=== PATIENT | female | born 1985 ===

== ENCOUNTER 2017-09-30 01:16 | Emergency (ER) | payer OTHER ==
[2017-09-30 01:17] VITALS: BMI 18.1
[2017-09-30 01:52] VITALS: RESP 16; O2SAT 99
--- NOTE | 2017-09-30 02:17 | ED PDOC ---
Lower Extremity Pain/Injury Time Seen by Provider: 09/30/17 01:20 Chief Complaint (Nursing): Lower Extremity Problem/Injury Chief Complaint (Provider): Lower Extremity Problem/Injury History Per: Patient History/Exam Limitations: no limitations Onset/Duration Of Symptoms: Days (x2) Additional Complaint(s): Windy Gomez is a 31 year old female with a past medical history of hypothyroidism during her , depression, and varicose veins who is presenting to the ED for evaluation of bilateral leg swelling, onset 2 days ago. Patient states that swelling has subsided but pain has remained, worse in right calf compared to left. Of note, patient just gave via on . She denies any chest pain or shortness of breath. PMD: none provided Past Medical History Reviewed: Historical Data, Nursing Documentation, Vital Signs Vital Signs: Last Vital Signs Temp 98.2 F 09/30/17 01:48 Pulse 70 09/30/17 01:48 Resp 16 09/30/17 01:48 BP 124/83 09/30/17 01:48 Pulse Ox 99 09/30/17 01:48 - Medical History PMH: Asthma, Depression Denies: Diabetes, HTN, Chronic Kidney Disease Other PMH: varicose veins, hypothyroidism - Surgical History Surgical History: - Family History Family History: States: Stroke Other Family History: blood clots - Social History Current smoker - smoking cessation education provided: No Alcohol: None Drugs: Denies - Allergies Allergies/Adverse Reactions: Allergies Allergy/AdvReac Type Severity Reaction Status Date / Time pollen extracts Allergy Mild SHORTNESS Verified 06/10/17 11:18 OF BREATH Review of Systems ROS Statement: Except As Marked, All Systems Reviewed And Found Negative Cardiovascular: Negative for: Chest Pain Respiratory: Negative for: Shortness of Breath Musculoskeletal: Positive for: Leg Pain, Other (leg swelling) Physical Exam - Reviewed Nursing Documentation Reviewed: Yes Vital Signs Reviewed: Yes - Physical Exam Appears: Positive for: Well, Non-toxic, No Acute Distress Head Exam: Positive for: ATRAUMATIC, NORMAL INSPECTION, NORMOCEPHALIC Skin: Positive for: Normal Color, Warm, DRY Eye Exam: Positive for: Normal appearance Neck: Positive for: Normal Cardiovascular/Chest: Positive for: Regular Rate, Rhythm Respiratory: Positive for: Normal Breath Sounds. Negative for: Respiratory Distress Extremity: Positive for: Normal ROM, Other (varicose veins on legs). Negative for: Pedal Edema, Deformity, Swelling Neurologic/Psych: Positive for: Alert, Oriented. Negative for: Motor/Sensory Deficits - ECG O2 Sat by Pulse Oximetry: 99 (RA) Pulse Ox Interpretation: Normal Medical Decision Making Medical Decision Making: Time: 2:04 Plan: --US Lower Extremities -- D Dimer D Dimer was elevated. US: FINDINGS: Right deep veins: No DVT in the right common femoral, femoral, proximal deep femoral or popliteal veins. The veins demonstrate normal color flow, are normally compressible, with normal phasic flow and/or augmentation response. Right superficial veins: No thrombus in the visualized right great saphenous vein. Left deep veins: No DVT in the left common femoral, femoral, proximal deep femoral or popliteal veins. The veins demonstrate normal color flow, are normally compressible, with normal phasic flow and/or augmentation response. Left superficial veins: No thrombus in the visualized left great saphenous vein. Soft tissues: No acute findings. No popliteal cyst. IMPRESSION: Normal bilateral lower extremity duplex venous ultrasound. Provider explained full diagnosis to patient and all questions were answered. Patient informed about returning to the ED if symptoms persist or worsen. She states that she has a doctor, Dr. Mccallum who she will follow up with. Upon provider evaluation, patient is stable and requires no further treatment in the ED at this time. Patient will be discharged home. Scribe Attestation: Documented by, Esperanza Mcintyre acting as a scribe for Salome Leon MD. Provider Scribe Attestation: All medical record entries made by the Scribe were at my direction and personally dictated by me. I have reviewed the chart and agree that the record accurately reflects my personal performance of the history, physical exam, medical decision making, and the department course for this patient. I have also personally directed, reviewed, and agree with the discharge instructions and disposition. Disposition - Clinical Impression Clinical Impression: Leg pain - Patient ED Disposition Is Patient to be Admitted: No Counseled Patient/Family Regarding: Studies Performed, Diagnosis, Need For Followup - Disposition Referrals: Ivonne Mccallum MD [Primary Care Provider] - Disposition: Routine/Home Disposition Time: 03:00 Condition: IMPROVED Additional Instructions: you need to follow up with your doctor within 2 days, you will need repeat duplex within one week to rule out blood clot return to the ED with any worsening or concerning symptoms Instructions: Lower Extremity Muscle Strain (DC) Forms: [facility] (Korean)
[2017-09-30 06:07] VITALS: BP 122/70; PULSE 76; TEMP 97.9
--- NOTE | 2017-09-30 08:20 | US ---
PROCEDURE: Bilateral lower extremity venous duplex Doppler. HISTORY: bilateral leg swelling COMPARISON: None available. TECHNIQUE: Bilateral common femoral, superficial femoral, popliteal and posterior tibial veins were evaluated. Flow was assessed with color Doppler, compressibility, assessment of phasic flow and augmentation response. FINDINGS: COMMON FEMORAL VEIN: Right CFV: Unremarkable. Left CFV: Unremarkable. SUPERFICIAL FEMORAL VEIN: Right SFV: Unremarkable. Left SFV: Unremarkable. POPLITEAL VEIN: Right Popliteal: Unremarkable. Left Popliteal: Unremarkable. POSTERIOR TIBIAL VEIN: Right PTV: Unremarkable. Left PTV: Unremarkable. OTHER FINDINGS: None. IMPRESSION: No evidence of deep venous thrombosis. Concordant results (preliminary interpretation) provided by [facility]. Procedure Completed: 03:46 Preliminary ([facility]) Report: Dictated and Authenticated: 04:21 Final Interpretation: 08:19
== END 2017-09-30 06:07 | disposition home or self-care (01) ==
LOC: H.ER 01:16
DX: M79.604 Pain in right leg (principal); M79.605 Pain in left leg; E03.9 Hypothyroidism, unspecified